=== PATIENT | female | born 1975 | race Hispanic/Latino ===

== ENCOUNTER 2022-11-04 12:38 | Emergency (ER) | payer SELFPAY ==
[~2022-11-04 12:38] MED LIST: Iopamidol-370 76% 500 ML 1 ML ONE
[2022-11-04 13:23] LABS: #Eosinphils 0.2 thou/uL (0.0-0.7); #Lymphocytes 2.5 thou/uL (1.20-3.40); #Monocytes 0.5 thou/uL (0.11-0.59); %Basophils 0.6 % (0.0-1.0); %Eosinophils 2.5 % (0.0-10.0); %Lymphocytes 40.5 % (21.0-51.0); %Monocytes 8.1 % (0.0-10.0); %Neutrophils 48.3 % (42.0-75.0); Hemoglobin 12.1 g/dL (12.0-16.0); Mean Corpuscular HGB CONC 33.7 g/dL (32.0-36.0); Mean Corpuscular Hemoglobin 28.2 pg (27.0-31.0); Mean Corpuscular Volume 83.6 fl (78.0-98.0); Platelet Count 186 10x3/uL (130-400); RBC Distribution Width 13.3 % (11.5-14.5); Red Blood Cell (RBC) Count 4.29 mill/uL (4.20-5.40); White Blood Cell (WBC) Count 6.3 10x3/uL (4.8-10.8)
[2022-11-04 13:25] LABS: BHCG - Serum Negative (NEGATIVE); Pregs Control Background? CLEAR/WHITE (CLR/WHITE); Pregs Control Bar Appear? YES (CONTROL BAR)
[2022-11-04 13:30] LABS: Albumin 3.8 g/dL (3.5-5.0)
[2022-11-04 13:32] LABS: Calcium 8.9 mg/dL (7.8-10.44); Chloride 105 mmol/L (98-107); Potassium 3.7 mmol/L (3.5-5.1); Sodium 138 mmol/L (136-145)
[2022-11-04 13:33] LABS: Glucose 96 mg/dL (70-105); Protein, Total 6.8 g/dL (6.0-8.3)
[2022-11-04 13:35] LABS: Anion Gap 14 mmol/L (10-20); Bilirubin, Total 0.2 mg/dL (0.2-1.2); Carbon Dioxide 23 mmol/L (22-29)
[2022-11-04 13:36] LABS: Alkaline Phosphatase 97 U/L (40-110); Calc. Creatinine Clearance 0 mL/min (70-130); Estimated GFR 99
[2022-11-04 13:37] LABS: BUN (Urea Nitrogen) 10 mg/dL (7.0-18.7)
[2022-11-04 13:38] LABS: AST (SGOT) 19 U/L (5-34)
[2022-11-04 13:39] LABS: ALT (SGPT) 19 U/L (8-55)
[2022-11-04] MEDS ORDERED: Ketorolac Tromethamine 30 MG/ML VIAL ONE (13:42)
[2022-11-04 13:52] LABS: Bilirubin Negative (Negative); Blood, Urine Negative (Negative); Clarity Clear (Clear); Glucose, Urine (Dipstick) Normal (Negative); Ketone, Urine Negative (Negative); Leukocyte Negative Leu/uL (Negative); Nitrite Negative (Negative); Protein, Urine (Dipstick) Negative (Neg-Trace); Specific Gravity, Urine 1.006 (1.002-1.036); Urobilinogen Normal mg/dL (Less than 2)
== END 2022-11-04 16:29 | disposition home or self-care (01) ==
LOC: ERS 12:38
DX: M54.42 Lumbago with sciatica, left side (principal)
CPT/HCPCS: 36415; 74177; 80053; 81003; 84703; 85025; 96374; J1885; Q9967